=== PATIENT | female | born 1965 | race Native Hawaiian/Other Pacific Islander ===

== ENCOUNTER 2020-11-07 15:03 | Outpatient (CLI) | payer OTHER | END 2020-11-07 22:00 | disposition home or self-care (01) | LOC: MAMMO 15:03 | PROVIDERS: ATTEND Obstetrics & Gynecology | DX: Z12.31 Encounter for screening mammogram for malignant neoplasm of breast (principal) ==

== ENCOUNTER 2020-11-27 14:33 | Outpatient (CLI) | payer OTHER | END 2020-11-27 22:23 | disposition home or self-care (01) | LOC: MAMMO 14:33 | PROVIDERS: ATTEND Internal Medicine | DX: N63.10 Unspecified lump in the right breast, unspecified quadrant (principal); N64.59 Other signs and symptoms in breast ==

== ENCOUNTER 2021-02-25 09:59 | Outpatient (CLI) | payer OTHER | END 2021-02-25 19:03 | disposition home or self-care (01) | LOC: MAMMO 09:59 | PROVIDERS: ATTEND Surgery | DX: N63.10 Unspecified lump in the right breast, unspecified quadrant (principal); Z98.890 Other specified postprocedural states; N64.59 Other signs and symptoms in breast | CPT/HCPCS: G0279 ==

== ENCOUNTER 2021-09-11 16:21 | Outpatient (CLI) | payer OTHER | END 2021-09-11 20:21 | disposition home or self-care (01) | LOC: RAD 16:21 | PROVIDERS: ATTEND Nurse Practitioner | DX: R05.3 Chronic cough (principal) ==

== ENCOUNTER 2022-02-10 13:47 | Outpatient (CLI) | payer OTHER | END 2022-02-10 19:09 | disposition home or self-care (01) | LOC: RESP 13:47 | PROVIDERS: ATTEND Specialist | DX: I10 Essential (primary) hypertension (principal) ==

== ENCOUNTER 2022-04-09 09:54 | Outpatient (CLI) | payer OTHER | END 2022-04-09 23:09 | disposition home or self-care (01) | LOC: LABW 09:54 | PROVIDERS: ATTEND Nurse Practitioner Family | DX: R50.9 Fever, unspecified (principal) | CPT/HCPCS: 87502 ==